=== PATIENT | female | born 1970 ===

== ENCOUNTER 2021-05-09 07:15 | Inpatient (IN) | payer OTHER ==
[~2021-05-09] VITALS: Ht 154.9 cm; Wt 73.0 kg
[2021-05-09] MEDS ORDERED: COZAAR100 MG PO (08:54)
[2021-05-17] MEDS ORDERED: Tylenol #3 PO (08:56)
[2021-05-17] MEDS ORDERED: NAPR500T14 PO (08:56)
== END 2021-05-17 10:22 | disposition home or self-care (01) | DRG 743 ==
LOC: OB/GYN 05-16 05:18 → O/R 05-16 05:18 → OB/GYN 05-16 07:15
PROVIDERS: ADMIT Obstetrics & Gynecology; ATTEND Obstetrics & Gynecology
PROC: 0UQF7ZZ Repair Cul-de-sac, Via Natural or Artificial Opening (ICD-10-PCS; 2021-05-16)
PROC: 0USG7ZZ Reposition Vagina, Via Natural or Artificial Opening (ICD-10-PCS; 2021-05-16)
PROC: 0TJB8ZZ Inspection of Bladder, Via Natural or Artificial Opening Endoscopic (ICD-10-PCS; 2021-05-16)
PROC: 0UT97ZZ Resection of Uterus, Via Natural or Artificial Opening (ICD-10-PCS; principal; 2021-05-16 10:45)
DX: N80.0 Endometriosis of uterus (principal); N81.11 Cystocele, midline; N81.5 Vaginal enterocele; D25.2 Subserosal leiomyoma of uterus; N72 Inflammatory disease of cervix uteri; N84.1 Polyp of cervix uteri; I10 Essential (primary) hypertension